=== PATIENT | male | born 1930 | race Two or more races ===

== ENCOUNTER 2021-05-28 13:25 | Inpatient (IN) | payer OTHER ==
[~2021-05-28] VITALS: Ht 175.3 cm; Wt 66.8 kg
[2021-05-28] MEDS ORDERED: PANTOPRAZOLE 40 MG/10 ML VIAL INJ IV ONE (13:45)
[2021-05-28] MEDS ORDERED: SODIUM CHLORIDE 0.9% 1,000 ML IV ONE ×2 (14:30→17:00)
[2021-05-28] MEDS ORDERED: FUROSEMIDE 40 MG/4 ML VIAL IV ONE (14:45)
[2021-05-28 15:01] LABS: Urine Bacteria NONE SEEN /hpf (None Seen); Urine Blood 3+ /uL (Negative); Urine Specific Gravity 1.022 (1.001-1.035); Urine WBC 57 /hpf (0 - 3)
[2021-05-28] MEDS ORDERED: levoFLOXacin 750MG 150 ML IV ONE (15:30)
[2021-05-28 15:31] LABS: Basophils # (auto) 0 10 ^3/uL (0-0.2); Basophils % (auto) 0.3 % (0.0-2.0); Eosinophils # (auto) 0 10 ^3/uL (0-0.8); Eosinophils % (auto) 0.1 % (0.0-7.0); Hematocrit 38.7 % (41.0-53.0); Hemoglobin 12.7 g/dL (13.5-17.5); Lymphocytes # (auto) 0.5 10 ^3/uL (0.4-5.4); Lymphocytes % (auto) 5.8 % (10.0-50.0); Mean Corpuscular Hemoglobin 31.5 pg (28.0-32.0); Mean Corpuscular Hgb Conc. 32.9 g/dL (32.0-36.0); Mean Corpuscular Volume 95.9 fL (80.0-100.0); Monocytes # (auto) 0.4 10 ^3/uL (0-1.3); Neutrophils # (auto) 7.4 10 ^3/uL (1.6-8.6); Neutrophils % (auto) 88.8 % (37.0-80.0); Nucleated Red Blood Cells % 0.1 %; Red Blood Cells 4.04 10^6/uL (4.5-5.90); Red Cell Distribution Width 15.5 % (11.8-14.3); White Blood Cell 8.3 10^3/uL (4.4-10.8)
[2021-05-28 15:48] LABS: INR 1.29 (0.9-1.15); Partial Thromboplastin Time 32.1 sec (23.6-33.0)
[2021-05-28 15:49] LABS: Albumin 3.1 g/dL (3.4-5.0); Calcium 9.4 mg/dL (8.5-10.1); Magnesium 3.1 mg/dL (1.6-2.6)
[2021-05-28 15:53] LABS: BUN/Creatinine Ratio 16.4; Total Protein 7.1 g/dL (6.4-8.2)
[2021-05-28 16:03] LABS: Potassium 5.6 mmol/L (3.5-5.1)
[2021-05-28] MEDS ORDERED: ALBUTEROL SULF 2.5 MG/0.5ML(0.5%) NEB SOLN NEB ONE ×2 (16:15→20:30)
[2021-05-28] MEDS ORDERED: CALCIUM GLUC 1,000mg/50ml-NS 50 ML IV ONE (16:15)
[2021-05-28] MEDS ORDERED: levoFLOXacin 500MG 100 ML IV ONE (16:30)
[2021-05-28] MEDS ORDERED: SODIUM ZIRCONIUM CYCL 10 GM PAK PO ONE ×2 (17:00→21:00)
[2021-05-28] MEDS ORDERED: MORPHINE SULFATE INJECTION 2 MG/ML SYRG IV PRN (17:00)
[2021-05-28] MEDS ORDERED: ONDANSETRON HCL 4 MG/2 ML VIAL IV PRN (17:00)
[2021-05-28] MEDS ORDERED: NITROGLYCERIN 0.4 MG SL TAB SL PRN (17:00)
[2021-05-28] MEDS: DOBUTamine 1000MCG/ML 250 ML IV SCH (18:04)
[2021-05-28] MEDS ORDERED: IPRATROPIUM BROM 0.5 MG/2.5ML INH SOL NEB ONE (20:30)
[2021-05-28 21:30] VITALS: BP 104/60
[2021-05-28 21:46] LABS: Folate (Folic Acid) 10.13 ng/mL (5.38-24)
[2021-05-28] MEDS ORDERED: CARVEDILOL 3.125 MG TAB PO SCH (22:00)
[2021-05-29] VITALS (51 sets, daily range): BP systolic 79–100; BP diastolic 45–72
[2021-05-29 05:31] LABS: Basophils # (auto) 0 10 ^3/uL (0-0.2); Basophils % (auto) 0.2 % (0.0-2.0); Eosinophils # (auto) 0 10 ^3/uL (0-0.8); Eosinophils % (auto) 0.1 % (0.0-7.0); Hemoglobin 12.5 g/dL (13.5-17.5); Lymphocytes # (auto) 0.5 10 ^3/uL (0.4-5.4); Lymphocytes % (auto) 4.6 % (10.0-50.0); Mean Corpuscular Hemoglobin 32.2 pg (28.0-32.0); Mean Corpuscular Hgb Conc. 33.8 g/dL (32.0-36.0); Mean Corpuscular Volume 95.4 fL (80.0-100.0); Monocytes # (auto) 0.6 10 ^3/uL (0-1.3); Monocytes % (auto) 5.7 % (0.0-12.0); Neutrophils # (auto) 8.7 10 ^3/uL (1.6-8.6); Neutrophils % (auto) 89.4 % (37.0-80.0); Nucleated Red Blood Cells % 0.1 %; Red Blood Cells 3.87 10^6/uL (4.5-5.90); Red Cell Distribution Width 15.5 % (11.8-14.3); White Blood Cell 9.7 10^3/uL (4.4-10.8)
[2021-05-29 05:47] LABS: Potassium 4.2 mmol/L (3.5-5.1)
[2021-05-29 05:52] LABS: Albumin 2.9 g/dL (3.4-5.0); BUN/Creatinine Ratio 16.7; Calcium 9.2 mg/dL (8.5-10.1)
[2021-05-29 06:00] LABS: Total Protein 6.4 g/dL (6.4-8.2)
[2021-05-29] MEDS: FUROSEMIDE 100 MG/10ML VIAL IV SCH ×2 (06:00→17:15)
[2021-05-29] MEDS: DOBUTamine 1000MCG/ML 250 ML IV SCH ×2 (08:25→18:28)
[2021-05-29] MEDS: ENOXAPARIN SOD 30 MG/0.3 ML SYRINGE SC SCH (10:00)
[2021-05-29] MEDS ORDERED: SOD CHL 0.45% 1,000 ML IV SCH (12:00)
[2021-05-29] MEDS: PANTOPRAZOLE 40 MG/10 ML VIAL INJ IV SCH ×2 (12:00→22:27)
[2021-05-29] MEDS: SODIUM BICARBONATE 50ML VIAL 50 ML in D5W 5% 1,000 ML IV SCH ×2 (12:00→22:30)
[2021-05-29 13:47] LABS: Creatinine, Urine 98 mg/dL (30.0-125.0); Sodium Urine 52 mmol/L (40-220)
[2021-05-29] MEDS: PHENYLEPHRINE INJ 40 MG in SODIUM CHL 0.9% 246 ML IV SCH (16:00)
[2021-05-29] MEDS ORDERED: LORazepam 2MG/ML-1ML VIAL IV PRN (17:15)
[2021-05-29] MEDS: AMIODARONE HCL 200 MG TAB NG SCH (22:27)
[2021-05-30] VITALS (54 sets, daily range): BP systolic 55–184; BP diastolic 23–156
[2021-05-30] MEDS ORDERED: NOREPINEPHRINE 8 MG/250ML KIT 250 ML IV SCH
[2021-05-30] MEDS: SODIUM BICARBONATE 50ML VIAL 50 ML in D5W 5% 1,000 ML IV SCH ×2 (02:05→19:39)
[2021-05-30 04:23] LABS: Basophils # (auto) 0 10 ^3/uL (0-0.2); Basophils % (auto) 0.1 % (0.0-2.0); Eosinophils # (auto) 0 10 ^3/uL (0-0.8); Eosinophils % (auto) 0.1 % (0.0-7.0); Hematocrit 37.9 % (41.0-53.0); Hemoglobin 12.5 g/dL (13.5-17.5); Lymphocytes # (auto) 0.5 10 ^3/uL (0.4-5.4); Lymphocytes % (auto) 3.5 % (10.0-50.0); Mean Corpuscular Hemoglobin 31.6 pg (28.0-32.0); Mean Corpuscular Volume 95.8 fL (80.0-100.0); Monocytes # (auto) 0.8 10 ^3/uL (0-1.3); Monocytes % (auto) 5.7 % (0.0-12.0); Neutrophils # (auto) 12.6 10 ^3/uL (1.6-8.6); Neutrophils % (auto) 90.6 % (37.0-80.0); Nucleated Red Blood Cells % 0.1 %; Red Blood Cells 3.96 10^6/uL (4.5-5.90); Red Cell Distribution Width 15.3 % (11.8-14.3); White Blood Cell 13.9 10^3/uL (4.4-10.8)
[2021-05-30] MEDS ORDERED: PHENYLEPHRINE IV 250 ML IV ONE (04:37)
[2021-05-30] MEDS ORDERED: PHENYLEPHRINE HCL 10 MG/ML VL ONE (04:37)
[2021-05-30] MEDS: PHENYLEPHRINE INJ 40 MG in SODIUM CHL 0.9% 246 ML IV SCH (04:42)
[2021-05-30 04:49] LABS: Albumin 2.8 g/dL (3.4-5.0); BUN/Creatinine Ratio 16.2; Calcium 9.1 mg/dL (8.5-10.1); Potassium 4.4 mmol/L (3.5-5.1)
[2021-05-30 04:52] LABS: Bilirubin, Total 1.3 mg/dL (0.2-1.0); Total Protein 6.3 g/dL (6.4-8.2)
[2021-05-30] MEDS: FUROSEMIDE 100 MG/10ML VIAL IV SCH ×3 (05:42→19:43)
[2021-05-30] MEDS: PANTOPRAZOLE 40 MG/10 ML VIAL INJ IV SCH ×2 (10:00→19:43)
[2021-05-30] MEDS: AMIODARONE HCL 200 MG TAB NG SCH ×2 (10:00→19:43)
[2021-05-30] MEDS: ENOXAPARIN SOD 30 MG/0.3 ML SYRINGE SC SCH (10:39)
[2021-05-30] MEDS: PHENYLEPHRINE INJ 80 MG in SODIUM CHL 0.9% 242 ML IV SCH (13:00)
[2021-05-30] MEDS ORDERED: ONDANSETRON HCL 4 MG/2 ML VIAL IV PRN (13:30)
[2021-05-30] MEDS: MORPHINE SULFATE INJECTION 2 MG/ML SYRG IV PRN ×4 (15:45→22:18)
[2021-05-30] MEDS: LORazepam 2MG/ML-1ML VIAL IV PRN (19:29)
[2021-05-30] MEDS: NOREPINEPHRINE BITARTRATE 32 MG in SODIUM CHL 0.9% 218 ML IV SCH (19:36)
[2021-05-30] MEDS: DOBUTamine 1000MCG/ML 250 ML IV SCH ×2 (19:43)
[2021-05-31] MEDS: LORazepam 2MG/ML-1ML VIAL IV PRN ×5 (00:15→23:00)
[2021-05-31] MEDS: MORPHINE SULFATE INJECTION 2 MG/ML SYRG IV PRN ×4 (02:13→23:02)
[2021-05-31 05:00] VITALS: BP 69/45
[2021-05-31 08:46] VITALS: BP 76/42
[2021-05-31] MEDS: AMIODARONE HCL 200 MG TAB NG SCH (10:00)
[2021-05-31] MEDS: ENOXAPARIN SOD 30 MG/0.3 ML SYRINGE SC SCH (10:00)
[2021-05-31] MEDS: PANTOPRAZOLE 40 MG/10 ML VIAL INJ IV SCH (10:00)
[2021-05-31] MEDS: PHENYLEPHRINE INJ 80 MG in SODIUM CHL 0.9% 242 ML IV SCH (12:30)
[2021-05-31] MEDS: NOREPINEPHRINE BITARTRATE 32 MG in SODIUM CHL 0.9% 218 ML IV SCH (12:30)
[2021-05-31 13:00] VITALS: BP 72/47
[2021-05-31 17:25] VITALS: BP 78/48
[2021-05-31 21:53] VITALS: BP 74/48
[2021-06-01 04:53] VITALS: BP 136/102
[2021-06-01 08:00] VITALS: BP 68/44
[2021-06-01 09:00] VITALS: BP 68/44
[2021-06-01 12:53] VITALS: BP 77/51
[2021-06-01] MEDS: MORPHINE SULFATE INJECTION 2 MG/ML SYRG IV PRN (13:50)
[2021-06-01 14:55] VITALS: BP 77/54
[2021-06-01] MEDS: LORazepam 2MG/ML-1ML VIAL IV PRN (16:57)
== END 2021-06-01 17:39 | disposition hospice, home (50) | DRG 280 ==
LOC: EDBD 13:25 → ER 13:25 → TELE 16:52 → TELE-CENTR 21:15 → ICU WEST 05-29 11:05 → EAST 05-30 21:32
PROVIDERS: ADMIT Internal Medicine; ATTEND Hospitalist
PROC: 4B02XTZ Measurement of Cardiac Defibrillator, External Approach (ICD-10-PCS; principal; 2021-05-29)
PROC: 05HC33Z Insertion of Infusion Device into Left Basilic Vein, Percutaneous Approach (ICD-10-PCS; 2021-05-29)
PROC: B54NZZA Ultrasonography of Left Upper Extremity Veins, Guidance (ICD-10-PCS; 2021-05-29)
DX: I21.4 Non-ST elevation (NSTEMI) myocardial infarction (principal); R57.0 Cardiogenic shock; J18.9 Pneumonia, unspecified organism; I50.23 Acute on chronic systolic (congestive) heart failure; G93.41 Metabolic encephalopathy; T82.119A Breakdown (mechanical) of unspecified cardiac electronic device, initial encounter; N39.0 Urinary tract infection, site not specified; E87.1 Hypo-osmolality and hyponatremia; I13.0 Hypertensive heart and chronic kidney disease with heart failure and stage 1 through stage 4 chronic kidney disease, or unspecified chronic kidney disease; K92.2 Gastrointestinal hemorrhage, unspecified; E87.2 Acidosis; E87.5 Hyperkalemia; I48.0 Paroxysmal atrial fibrillation; I71.4 Abdominal aortic aneurysm, without rupture; Z20.822 Contact with and (suspected) exposure to COVID-19; Y71.2 Prosthetic and other implants, materials and accessory cardiovascular devices associated with adverse incidents; K42.9 Umbilical hernia without obstruction or gangrene; E88.09 Other disorders of plasma-protein metabolism, not elsewhere classified; Z66 Do not resuscitate; E78.5 Hyperlipidemia, unspecified; N18.9 Chronic kidney disease, unspecified; R09.89 Other specified symptoms and signs involving the circulatory and respiratory systems; N40.0 Benign prostatic hyperplasia without lower urinary tract symptoms; Z51.5 Encounter for palliative care; Z79.01 Long term (current) use of anticoagulants; Z82.3 Family history of stroke; Z82.49 Family history of ischemic heart disease and other diseases of the circulatory system; Z85.038 Personal history of other malignant neoplasm of large intestine; Z95.810 Presence of automatic (implantable) cardiac defibrillator; Y92.89 Other specified places as the place of occurrence of the external cause
CPT/HCPCS: 36415; 36600; 70450; 71045; 74176; 76775; 80053; 81001; 82306; 82570; 82607; 82746; 82805; 83690; 83735; 83880; 83970; 84100; 84156; 84300; 84443; 84484; 85025; 85610; 85730; 86850; 86900; 86901; 87081; 93005; 93306; 94640; 96361; 96374; 99291; C9113; G0378; J1956